=== PATIENT | male | born 1990 | race Caucasian/White ===

== ENCOUNTER 2019-08-24 07:09 | Emergency (ER) | payer SELFPAY ==
[~2019-08-24] VITALS: Ht 175.3 cm; Wt 94.7 kg
[2019-08-24 07:45] VITALS: BP 166/97
== END 2019-08-24 08:00 | disposition left against medical advice (07) ==
LOC: EMS 07:11
DX: R56.9 Unspecified convulsions (principal); F17.210 Nicotine dependence, cigarettes, uncomplicated
CPT/HCPCS: 99283; Z7502